=== PATIENT | female | born 1960 | race Caucasian/White ===

== ENCOUNTER 2022-12-24 07:04 | Outpatient (CLI) | payer BC, OTHER ==
--- NOTE | 2022-12-24 12:51 | XRAY Report ---
PROCEDURE: Foot 3 View LT INDICATIONS: BONY GROWTH TECHNIQUE: 3 views of the foot were acquired. COMPARISON: X-ray ankle 12/24/2022 FINDINGS: Bones: No fractures or dislocations. No suspicious bony lesions. Scattered IP degenerative change . Soft tissues: No suspicious soft tissue calcifications or masses. IMPRESSION: No acute bony abnormality. No abnormal bony overgrowth at the area of concern. Reviewed by: Nina Perea MD on 12/24/2022 12:49 PM PDT Approved by: Nina Perea MD on 12/24/2022 12:49 PM PDT Station ID: [id number]
--- NOTE | 2022-12-24 13:04 | XRAY Report ---
PROCEDURE: Ankle 3 View LT INDICATIONS: BONY GROWTH TECHNIQUE: 3 views of the ankle were acquired. COMPARISON: None. FINDINGS: Bones: No acute fractures or dislocations. Ankle mortise is normally aligned. No suspicious bony l esions. No suspicious osseous lesions near the BB skin marker over the lateral aspect of the left [place] t/ankle. Plantar calcaneal enthesophyte. Soft tissues: No tibiotalar joint effusion. Achilles tendon appears normal. IMPRESSION: No acute bony abnormality. No bony abnormalities identified over the lateral aspect of the left foot/ankle at the palpable area of concern. If there is persistent clinical concern for pathology, further evaluation with MRI can be considered. Reviewed by: Mian Patton MD on 12/24/2022 1:03 PM PDT Approved by: Mian Patton MD on 12/24/2022 1:03 PM PDT Station ID: [id number]
== END 2022-12-24 07:05 | disposition home or self-care (01) ==
LOC: DI 07:04
PROVIDERS: ATTEND Physician Assistant
DX: M25.572 Pain in left ankle and joints of left foot (principal); M85.9 Disorder of bone density and structure, unspecified

== ENCOUNTER 2023-08-09 14:52 | Outpatient (CLI) | payer BC ==
--- NOTE | 2023-08-10 10:30 | Mammography Report ---
BILATERAL DIGITAL SCREENING MAMMOGRAM 3D/2D: 08/09/2023 CLINICAL: Routine screening. Comparison is made to exams dated: 07/20/2022 mammogram, 10/04/2019 mammogram, and 04/12/2018 mammogram - [facility]. Both breasts are heterogeneously dense, which may obscure small masses (category c / 51-75% glandular tissue). No significant masses, calcifications, or other findings are seen in either breast. There has been no significant interval change. IMPRESSION: NEGATIVE There is no mammographic evidence of malignancy. A 1 year screening mammogram is recommended. Based on the Tyrer Cuzick model (a risk assessment model) the patient's lifetime risk is 10.9% and he r 10 year risk is 4.6%. According to the ACR, ACS, and NCCN guidelines, an annual breast MRI exam iman ng with mammogram is recommended if the patient's lifetime risk is 20% or greater. This exam was interpreted at Station ID: [id number]. NOTE: For mammograms, a report in lay terms will be sent to the patient. Approximately 15% of breast malignancies will not be visualized mammographically. In the management of a palpable breast mass, a negative mammogram must not discourage biopsy of a clinically suspicious lesion. Electronically Signed By: Harsh [email or web address]:08/10/2023 08:35:49 letter sent: No_Letter ACR BI-RADS Category 1: Negative 3341F PARENCHYMAL PATTERN: (D) - The breast(s) demonstrate(s) heterogeneously dense fibroglandular gelacio fong. BI-RADS CATEGORY: (1) - 1 RECOMMENDATION: (ANNUAL) - Recommend routine annual screening mammography. [id number] 1 year screening LATERALITY: (B)
== END 2023-08-09 14:53 | disposition home or self-care (01) ==
LOC: DI 14:52
DX: Z12.31 Encounter for screening mammogram for malignant neoplasm of breast (principal); R92.333 Mammographic heterogeneous density, bilateral breasts